=== PATIENT | male | born 1970 | race Caucasian/White ===

== ENCOUNTER 2016-10-02 03:36 | Emergency (ER) | payer OTHER ==
[2016-10-02 03:52] VITALS: BP 128/86; PULSE 85; TEMP 98.1; BMI 32.5
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
== END 2016-10-02 06:07 | disposition home or self-care (01) ==
LOC: JER 03:36
DX: S39.012A Strain of muscle, fascia and tendon of lower back, initial encounter (principal); W18.39XA Other fall on same level, initial encounter; Y35.811A Legal intervention involving manhandling, law enforcement official injured, initial encounter; Y93.89 Activity, other specified; Y92.480 Sidewalk as the place of occurrence of the external cause; Y99.0 Civilian activity done for income or pay
CPT/HCPCS: 72100-TC; 99282-25

== ENCOUNTER 2016-11-08 08:32 | Emergency (ER) | payer OTHER ==
[2016-11-08 08:36] VITALS: BP 137/92; PULSE 87; TEMP 98.1; BMI 32.5
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
== END 2016-11-08 09:06 | disposition home or self-care (01) ==
LOC: JER 08:32 → JERFT 08:32
DX: S69.82XA Other specified injuries of left wrist, hand and finger(s), initial encounter (principal); X50.0XXA Overexertion from strenuous movement or load, initial encounter; Y35.891A Legal intervention involving other specified means, law enforcement official injured, initial encounter; Y93.89 Activity, other specified; Y92.29 Other specified public building as the place of occurrence of the external cause; Y99.0 Civilian activity done for income or pay
CPT/HCPCS: 73130-TC-LT; 99281-25

== ENCOUNTER 2017-05-19 04:43 | Emergency (ER) | payer BC, OTHER ==
[2017-05-19 04:57] VITALS: BP 143/103; PULSE 81; TEMP 98.5; BMI 33.2
[2017-05-19] MEDS ORDERED: KETOROLAC TROMETHAMINE 60 MG/2 ML VIAL IM ONE (05:08)
[2017-05-19] MEDS ORDERED: CYCLOBENZAPRINE HCL 10 MG TABLET (FP) PO ONE (05:08)
--- NOTE | 2017-05-19 05:08 | PDOC ---
History of Present Illness - General Chief Complaint: Pain, Acute Stated Complaint: L LEG PAIN Time Seen by Provider: 05/19/17 04:58 History Source: Patient Exam Limitations: No Limitations - History of Present Illness Initial Comments: 05/19/17 06:40 Patient is a 47-year-old male with past medical history of back pain, sciatica, who presents to the emergency department today complaining of left leg pain. Patient states that he felt back spasm approximately 2 days ago. He treated it with heat and icy hot at the time. He states his back pain got better however now he has shooting pain down the his leg. He states that the pain is on the lateral side of his leg, he states that the pain feels like a "charley horse ". Denies calf pain, numbness and tingling of his leg, weakness, bladder and bowel incontinence, saddle anesthesia, and recent trauma. Past History - Travel Traveled outside of the country in the last 30 days: No Close contact w/someone who was outside of country & ill: No - Past Medical History Allergies/Adverse Reactions: Allergies Allergy/AdvReac Type Severity Reaction Status Date / Time No Known Allergies Allergy Verified 05/19/17 04:55 Home Medications: Ambulatory Orders Cyclobenzaprine HCl [Flexeril -] 10 mg PO TID #10 tablet 05/19/17 Ibuprofen 800 mg PO TID #10 tablet 05/19/17 Anemia: No Asthma: Yes Cancer: No Cardiac Disorders: No CVA: No COPD: No CHF: No Dementia: No Diabetes: No GI Disorders: Yes (GERD) Disorders: No HTN: No Hypercholesterolemia: No Liver Disease: No Seizures: No Thyroid Disease: No - Surgical History Abdominal Surgery: No Appendectomy: No Cardiac Surgery: No Cholecystectomy: No Lung Surgery: No Neurologic Surgery: No Orthopedic Surgery: Yes (LEFT ANKLE) - Immunization History Td Vaccination: No Immunization Up to Date: Yes - Suicide/Smoking/Psychosocial Hx Smoking Status: Yes Smoking History: Never smoked Have you smoked in the past 12 months: No Number of Cigarettes Smoked Daily: 0 If you are a former smoker, when did you quit?: 2007 Information on smoking cessation initiated: No Hx Alcohol Use: No Drug/Substance Use Hx: No Substance Use Type: Alcohol Hx Substance Use Treatment: No Review of Systems - Review of Systems Able to Perform ROS?: Yes Comments:: 05/19/17 06:42 CONSTITUTIONAL: Absent: fever, chills, diaphoresis, generalized weakness, malaise, loss of appetite HEENT: Absent: rhinorrhea, nasal congestion, throat pain, throat swelling, difficulty swallowing, mouth swelling, ear pain, eye pain, visual Changes CARDIOVASCULAR: Absent: chest pain, loss of consciousness, palpitations, irregular heart rate, peripheral edema RESPIRATORY: Absent: cough, shortness of breath, dyspnea with exertion, orthopnea, wheezing, stridor, hemoptysis GASTROINTESTINAL: Absent: abdominal pain, abdominal distension, nausea, vomiting, diarrhea, constipation, melena, hematochezia GENITOURINARY: Absent: dysuria, frequency, urgency, hesitancy, hematuria, flank pain, genital pain MUSCULOSKELETAL: Present: L low back pain, L leg pain Absent: myalgia, arthralgia, joint swelling SKIN: Absent: rash, itching, pallor HEMATOLOGIC/IMMUNOLOGIC: Absent: easy bleeding, easy bruising, lymphadenopathy, frequent infections ENDOCRINE: Absent: unexplained weight gain, unexplained weight loss, heat intolerance, cold intolerance NEUROLOGIC: Absent: headache, focal weakness or paresthesias, dizziness, unsteady gait, seizure, mental status changes, bladder or bowel incontinence PSYCHIATRIC: Absent: anxiety, depression, suicidal or homicidal ideation, hallucinations. Is the patient limited Slovenian proficient: No *Physical Exam - Vital Signs Last Vital Signs Temp Pulse Resp BP Pulse Ox 98.5 F 81 20 143/103 96 05/19/17 04:55 05/19/17 04:55 05/19/17 04:55 05/19/17 04:55 05/19/17 04:55 - Physical Exam Comments: 05/19/17 06:50 GENERAL: Well developed, well nourished. Awake and alert. No acute distress. HEENT: Normocephalic, atraumatic. PERRLA, EOMI. No conjunctival pallor. Sclera are non- icteric. Moist mucous membranes. Oropharynx is clear. NECK: Supple. Full ROM. No JVD. Carotid pulses 2+ and symmetric, without bruits. No thyromegaly. No lymphadenopathy. CARDIOVASCULAR: Regular rate and rhythm. No murmurs, rubs, or gallops. Distal pulses are 2+ and symmetric. PULMONARY: No evidence of respiratory distress. Lungs clear to auscultation bilaterally. No wheezing, rales or rhonchi. ABDOMINAL: Soft. Non-tender. Non-distended. No rebound or guarding. No organomegaly. Normoactive bowel sounds. MUSCULOSKELETAL (+) flip test on the L. No Normal range of motion at all joints. No bony deformities or tenderness. No CVA tenderness. EXTREMITIES: No cyanosis. No clubbing. No edema. No calf tenderness. SKIN: Warm and dry. Normal capillary refill. No rashes. No jaundice. NEUROLOGICAL: Alert, awake, appropriate. Cranial nerves 2-12 intact. No deficits to light touch and temperature in face, upper extremities and lower extremities. No motor deficits in the in face, upper extremities and lower extremities. Normoreflexic in the upper and lower extremities. Normal speech. Toes are down- going bilaterally. Gait is normal without ataxia. PSYCHIATRIC: Cooperative. Good eye contact. Appropriate mood and affect. *DC/Admit/Observation/Transfer Diagnosis at time of Disposition: Low back pain Qualifiers: Chronicity: acute Back pain laterality: left Sciatica presence: with sciatica Sciatica laterality: sciatica of left side Qualified Code(s): M54.42 - Lumbago with sciatica, left side - Discharge Dispostion Disposition: HOME Condition at time of disposition: Good Admit: No - Prescriptions Prescriptions: Cyclobenzaprine HCl [Flexeril -] 10 mg PO TID #10 tablet Ibuprofen 800 mg PO TID #10 tablet - Referrals Referrals: Kaylee Quispe MD [Primary Care Provider] - - Patient Instructions Printed Discharge Instructions: DI for Back Pain With Sciatica Additional Instructions: You have flare of her sciatica. Please take the Flexeril at 2 PM today and 8 PM today. Starting tomorrow you can take the Flexeril at night. You may take ibuprofen as needed for your pain starting at 6 PM tonight. Gentle stretching of your back may help her pain. You may use heat or ice as needed. Please follow -up with her primary care doctor. Return to the emergency department if your pain gets worse, if you have numbness or tingling down her legs, if you have bladder or bowel incontinence, or if you have any changes in your symptoms. - Post Discharge Activity Forms/Work/School Notes: Back to Work
[2017-05-19] MEDS ORDERED: CYCLOBENZAPRINE HCL 10 MG TABLET (FP) ONE (05:46)
[2017-05-19] MEDS ORDERED: KETOROLAC TROMETHAMINE 60 MG/2 ML VIAL ONE (05:46)
== END 2017-05-19 06:47 | disposition home or self-care (01) ==
LOC: JER 04:43
DX: M54.42 Lumbago with sciatica, left side (principal)
CPT/HCPCS: 99281-25

== ENCOUNTER 2017-07-29 19:12 | Emergency (ER) | payer OTHER, BC ==
[2017-07-29 19:33] VITALS: BP 140/65; PULSE 96; TEMP 98.2; BMI 34.0
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
== END 2017-07-29 20:03 | disposition home or self-care (01) ==
LOC: JERFT 19:12
DX: S69.92XA Unspecified injury of left wrist, hand and finger(s), initial encounter (principal); Y35.891A Legal intervention involving other specified means, law enforcement official injured, initial encounter; W18.39XA Other fall on same level, initial encounter; Y93.89 Activity, other specified; Y92.9 Unspecified place or not applicable; Y99.0 Civilian activity done for income or pay; K21.9 Gastro-esophageal reflux disease without esophagitis
CPT/HCPCS: 73130-TC-LR-FY; 99281-25

== ENCOUNTER 2020-06-11 13:20 | Emergency (ER) | payer BC ==
[2020-06-11 13:25] VITALS: BP 154/93; PULSE 94; TEMP 98; BMI 34.0
== END 2020-06-11 14:54 | disposition home or self-care (01) ==
LOC: FER 13:20
DX: M25.511 Pain in right shoulder (principal)
CPT/HCPCS: 99283-25

== ENCOUNTER 2020-11-28 16:24 | Emergency (ER) | payer BC, OTHER ==
[2020-11-28] MEDS ORDERED: IBUPROFEN 600 MG TABLET (FP) PO ONE ×2 (16:28→16:45)
[2020-11-28 16:40] VITALS: BP 137/97; PULSE 102; TEMP 99.6; BMI 33.0
== END 2020-11-28 16:53 | disposition home or self-care (01) ==
LOC: FER 16:24
DX: S49.92XA Unspecified injury of left shoulder and upper arm, initial encounter (principal); S89.91XA Unspecified injury of right lower leg, initial encounter
CPT/HCPCS: 99283-25

== ENCOUNTER 2021-02-26 14:20 | Emergency (ER) | payer BC, OTHER ==
[2021-02-26 14:31] VITALS: BP 140/86; PULSE 98; TEMP 97.8; BMI 33.4
== END 2021-02-26 14:50 | disposition home or self-care (01) ==
LOC: FER 14:20
DX: Z57.8 Occupational exposure to other risk factors (principal)
CPT/HCPCS: 99283-25

== ENCOUNTER 2021-04-21 23:27 | Emergency (ER) | payer BC ==
[2021-04-21 23:33] VITALS: BP 167/97; PULSE 87; TEMP 98.7; BMI 43.0
[2021-04-22 02:07] LABS: HIV INTERPRETATION NEGATIVE (NEGATIVE)
== END 2021-04-21 23:47 | disposition home or self-care (01) ==
LOC: FER 23:27
DX: Z77.21 Contact with and (suspected) exposure to potentially hazardous body fluids (principal)
CPT/HCPCS: 36415; 87389; 99283-25

== ENCOUNTER 2021-04-26 05:28 | Day surgery (SDC) | payer BC, OTHER ==
[2021-04-25 14:50] VITALS: BMI 33.4
[2021-04-26] MEDS ORDERED: LIDOCAINE HCL 1%, 10 MG/ML (20ML VIAL) ONE (11:00)
[2021-04-26] MEDS ORDERED: BUPIVACAINE HCL/PF 0.5% (5MG/ML) 10 ML VIAL ONE (11:00)
[2021-04-26] MEDS ORDERED: LIDOCAINE 1%/EPI 1:100000 (20 ML MULTI DOSE VIAL) ONE (11:00)
[2021-04-26] MEDS ORDERED: MIDAZOLAM HCL 2 MG/2 ML SINGLE DOSE VIAL ONE ×2 (11:11→11:44)
[2021-04-26] MEDS ORDERED: PROPOFOL 20 ML ONE (11:26)
[2021-04-26] MEDS ORDERED: LIDOCAINE 1%/EPI 1:100000 (50 ML MULTI DOSE VIAL) INF ONE (11:29)
[2021-04-26] MEDS ORDERED: ACETAMINOPHEN INJECTION 100 ML IVPB ONE (11:50)
[2021-04-26] MEDS ORDERED: BENZOIN/ALOE VERA/STORAX/TOLU 58 ML BOTTLE ONE (11:52)
[2021-04-26] MEDS ORDERED: oxyCODONE HCL 5 MG TABLET PO PRN (12:00)
[2021-04-26] MEDS ORDERED: LACTATED RINGERS SOLUTION 1,000 ML IV SCH (12:00)
[2021-04-26] MEDS ORDERED: ONDANSETRON 4 MG/2 ML VIAL IVPUSH PRN (12:00)
[2021-04-26 12:55] VITALS: BP 123/98; PULSE 82; TEMP 98.4
== END 2021-04-26 12:40 | disposition home or self-care (01) ==
LOC: JASU-SURG 05:28
PROVIDERS: ATTEND Surgery
PROC: 0HB4XZZ Excision of Neck Skin, External Approach (ICD-10-PCS; principal; 2021-04-26 10:30)
DX: L72.3 Sebaceous cyst (principal)
CPT/HCPCS: 82962; 88304-TC; J0131

== ENCOUNTER 2021-07-02 17:48 | Emergency (ER) | payer BC, OTHER ==
[2021-07-02 18:04] VITALS: BP 158/105; PULSE 91; TEMP 98.8; BMI 42.0
== END 2021-07-02 19:03 | disposition home or self-care (01) ==
LOC: FER 17:48
DX: S93.401A Sprain of unspecified ligament of right ankle, initial encounter (principal); X50.9XXA Other and unspecified overexertion or strenuous movements or postures, initial encounter
CPT/HCPCS: 73610-TC-RT-FY; 73630-TC-RT-FY; 99283-25

== ENCOUNTER 2022-03-06 12:47 | Emergency (ER) | payer OTHER, BC ==
[2022-03-06 13:05] VITALS: BP 141/107; PULSE 93; RESP 16; TEMP 98.4; BMI 31.3
== END 2022-03-06 13:31 | disposition home or self-care (01) ==
LOC: FER 12:47
DX: Z77.21 Contact with and (suspected) exposure to potentially hazardous body fluids (principal)
CPT/HCPCS: 99282-25

== ENCOUNTER 2022-10-05 21:10 | Emergency (ER) | payer OTHER, BC ==
[2022-10-05 21:19] VITALS: BP 142/93; PULSE 84; RESP 16; TEMP 97.6; BMI 31.0
== END 2022-10-05 21:49 | disposition home or self-care (01) ==
LOC: JERFT 21:10
DX: S09.93XA Unspecified injury of face, initial encounter (principal); Y04.0XXA Assault by unarmed brawl or fight, initial encounter
CPT/HCPCS: 99282-25

== ENCOUNTER 2024-01-24 14:15 | Emergency (ER) | payer BC, OTHER ==
[2024-01-24 14:29] VITALS: BP 149/102; PULSE 88; RESP 20; TEMP 97.5; BMI 31.7
== END 2024-01-24 16:36 | disposition home or self-care (01) ==
LOC: FER 14:15
DX: S60.221A Contusion of right hand, initial encounter (principal); W23.1XXA Caught, crushed, jammed, or pinched between stationary objects, initial encounter
CPT/HCPCS: 73130-TC-RT-FY; 99283-25